=== PATIENT | male | born 1950 | race African-American/Black ===

== ENCOUNTER 2024-08-18 07:05 | Day surgery (SDC) | payer OTHER ==
[2024-08-05 15:22] LABS: Specific Gravity 1.013 (1.005-1.030); Urine Bilirubin NEGATIVE (Negative); Urine Blood Negative (Negative); Urine Clarity Clear (Clear); Urine Color Light-Yellow (Yellow); Urine Culture Reflex Order REFLEXED; Urine Glucose NEGATIVE (Negative); Urine Ketones NEGATIVE (Negative); Urine Microscopic Reflex YN NO UMIC; Urine Nitrite NEGATIVE (Negative); Urine Protein NEGATIVE (Negative); Urine Urobilinogen Normal (Normal)
[2024-08-05 15:23] LABS: Absolute Eosinophils 0.1 K/uL (0-0.5); Absolute Lymphocytes (CBC) 1.5 K/uL (0.7-4.9); Absolute Monocytes 0.5 K/uL (0.1-1.3); Basophils % 0.5 % (0-1.3); Eosinophils % 1.7 % (0-4.4); Hematocrit 41.8 % (39.6-49.0); Hemoglobin 14.3 g/dL (13.6-17.9); Lymphocytes % 24.4 % (15.3-44.8); MCH 28.9 pg (27.0-35.0); MCHC 34.3 g/dL (32.0-36.0); MCV 84.5 fL (80-100); Monocytes % 7.6 % (3.3-12.3); Neutrophils % 65.8 % (41.7-73.7); Nucleated Red Blood Cells % 0.2 % (0-0); Platelets 241 thou/uL (152-406); RBC Red Blood Cell Count 4.95 M/uL (4.33-5.43); Red Cell Distribution Width 14.8 % (12.1-15.2)
[2024-08-05 15:26] LABS: PT Prothrombin Time 11.5 SECONDS (10-13.0); Protime INR 1.01
[2024-08-05 15:38] LABS: Anion Gap 9.9 mEq/L (5.0-15.0); Potassium 3.9 mEq/L (3.5-5.1)
--- NOTE | 2024-08-05 17:43 | RAD REPORT ---
EXAM: Chest Pa And Lat (2 Views) HISTORY: 73 years Male Pre-op pending urolift/circumcision COMPARISON: None. FINDINGS: LUNGS/PLEURA: The lungs are clear. No pleural effusions or pneumothorax. No pulmonary edema. CARDIAC/MEDIASTINUM: The cardiac silhouette is within normal limits. UPPER ABDOMEN: No significant abnormality. BONES: No acute abnormality. LINES/TUBES/OTHER: N/A IMPRESSION: No evidence of acute cardiopulmonary disease.
--- NOTE | 2024-08-06 11:42 | EKG ---
Test Date: 2024-08-05 Test Time: 14:38:14 Unit Nurse: MANJULA MEASUREMENT RESULTS: Intervals: Rate: 59 IL: 168 QRSD: 76 QT: 352 QTc: 348 [place]: P: 24 IL: 168 QRS: -13 T: 65 INTERPRETIVE STATEMENTS: Sinus bradycardia Otherwise normal ECG No previous ECG available for comparison Electronically Signed On 08-06-24 11:39:42 CDT by Alf Leija
[2024-08-18] MEDS: NA CHLORIDE 0.9% 1,000 ML ONE (07:30)
[2024-08-18] MEDS ORDERED: ONDANSETRON 4 MG/2 ML VIAL ONE (09:01)
[2024-08-18] MEDS ORDERED: FENTANYL CITR 100 MCG/2 ML ONE ×2 (09:02→10:04)
[2024-08-18] MEDS ORDERED: propofoL 200 MG/20 ML VIAL IV ONE ×3 (09:02→11:05)
[2024-08-18] MEDS ORDERED: MIDAZOLAM HCL 2 MG/2 ML INJ ONE (09:03)
[2024-08-18] MEDS ORDERED: GENTAMICIN 80 MG/100 ML BAG 160 MG/200 ML BAG IV ONE (09:04)
[2024-08-18] MEDS: CEFAZOLIN SODIUM 2 GM/VIAL ONE (09:21)
[2024-08-18] MEDS ORDERED: EPHEDRINE SULF 50 MG/ML VIAL ONE (09:39)
[2024-08-18] MEDS ORDERED: GLYCOPYRROLATE 0.2 MG/ML SYR ONE (09:52)
[2024-08-18] MEDS ORDERED: ROCURONIUM 50 MG/5 ML VIAL IV ONE (10:30)
[2024-08-18] MEDS: LIDOCAINE 1% MPF 30 ML VIAL ONE (10:57)
[2024-08-18] MEDS: BUPIVACAINE 0.25% PF 30 ML VIAL ONE (10:57)
[2024-08-18] MEDS: BACITRACIN OINTMENT 14 GM TUBE TOP ONE (11:45)
[2024-08-18] MEDS ORDERED: CODEINE 30MG/APAP 300MG TAB PO PRN (12:21)
--- NOTE | 2024-08-18 12:49 | P.OP ---
Date of Service: 08/18/24 Preoperative diagnoses: Phimosis BPH with LUTS Postoperative diagnoses: Phimosis BPH with LUTS Bulbar urethral stricture disease Principal procedures: Cystoscopy Sequential urethral dilation over a wire Prostatic urethral lift/UroLift with 8 implants used, 6 successfully placed -- with 1 bone strike and 1 pull-through Complex 20 Finnish urethral Petty catheter placement over a wire Sleeve circumcision Penile block Indications for procedure: 73-year-old gentleman who presented to the urology clinic with bothersome urinary symptoms refractory to maximum dose alpha-kelly therapy. Consideration was given to use of a 5 alpha reductase inhibitor but ultimately the patient elected surgical therapy via the UroLift. Because of dense phimosis, I counseled him on the need for circumcision in order to be able to access the urethra to perform the UroLift. Procedure note: The patient was consented in the preoperative holding area before being transferred to the operative suite where general anesthesia was induced. He was given Ancef 2 g and gentamicin 160 mg IV antimicrobial prophylaxis, and pneumoboots were provided for DVT prophylaxis. He was placed in the lithotomy position initially, padded and secured to the table appropriately. His genitalia was prepped with Hibiclens, and I used Betadine on Q-tip swabs to cleanse beneath the foreskin and around the glans due to the dense phimosis. I was then able to insert the tip of the 20 Finnish UroLift sheath and visual obturator via the dense phimotic opening of the foreskin and navigate into the meatus. I traversed the distal into the mid and proximal urethra where at the bulb I encountered an area of stricture narrowing that prohibited passage of the 20 Finnish scope despite manipulation to try to use the beak of the scope to dilate the stricture narrowing. Because ultimately I was unsuccessful, I then had to remove the 20 Finnish UroLift scope and switch for a 19.5 Finnish rigid cystoscope, which I used to traverse the urethra similarly to the point of obstruction and passed a Bentson guidewire via the strictured narrowing putatively into his bladder. Over the guidewire, I then utilized sequential dilators to dilate the stricture disease from 10 Finnish to 22 Finnish. After this, I was able to navigate the 19.5 Finnish cystoscope into his bladder and d ecompress it of fluid and urine. I then remove the cystoscope and again replaced the 20 Finnish UroLift sheath and visual obturator via his urethra into his bladder going beyond the point of some tightness in the bulbar urethra that was persistent despite prior dilation. However, I was able to navigate through the prostatic urethra and into the bladder and observed significant lateral lobar hypertrophy contributing to obstruction. As a result, I switched the visual obturator for the UroLift delivery device and the first implant. I targeted this implant at around the 3 o'clock position on the patient's left angled 30 to 45 degrees upward in order to tack an adenomatous piece of tissue superior laterally on the patient's left side. I did this by angling the delivery device against the tissue 15 degrees before pulling the trigger once delivering the needle through the substance of the prostate. I then compressed the tissue and additional 15 degrees maximally to ensure the tip of the needle was situated outside of the capsule before pulling the trigger a second time deploying the capsular tab. I then pulled the trigger third time retracting the needle and tensioning the suture before advancing the scope back toward the midline and 2 to 3 mm toward the bladder neck opening, until the white line of the monofilament was centered in the delivery bay, at which point I pulled the t community support specialist a fourth time tailoring the suture and deploying a urethral power plant installer. This did beautifully lateralize and lift the tissue on the patient's left side at the bladder neck. I then advanced the scope back into the patient's bladder and switched the delivery device for a new implant which I targeted and a position slightly more anteriorly on the patient's right side at around the 10 to 11 o'clock position about 1.5 cm distal to the bladder neck opening. Similarly, I angled the scope 15 degrees against the tissue and pulled the trigger, but this did result in what was apparently a bone strike, which became more apparent after the third pull of the trigger did reveal no suture within the channel. As a result, I removed the delivery device and pulled the trigger the fourth time to deploy the urethral end piece outside of the cystoscopic lumen, and then I went back in with a new UroLift implant. As a result, at this point, 2 implants had been used, but only 1 successfully placed. I then placed a third implant, the second successfully placed, on the patient's right side at the bladder neck as described. This did nicely open up the bladder neck; so I placed a third implant, the fourth implant used, at the patient's verumontanum on the left at around the 3 o'clock position, before placing a fourth implant, the fifth used, at the level of the verumontanum on the patient's right side. I then surveyed the channel created, and there was still significant kissing and interdigitating adenoma within the mid zone of the prostate bilaterally. The majority of that seem to be coming from the patient's left side; so I started by using a sixth implant, and successfully placing the fifth implant in the patient's mid zone of the prostate on the left side. I then surveyed the channel created using a visual obturator revealing an asymmetric channel with intraurethrally intruding tissue coming from the right side, and so I utilized a seventh implant targeting the mid zone of the prostate on the right side. And per routine, I angled the delivery device 15 degrees against the tissue before pulling the trigger once delivering the needle through the substance of the prostate, but by the sound of the delivery device, there was an apparently a pull-through which was identifiable after the third pull of the trigger. As a result, before pulling the trigger a fourth time, I removed the implant delivery device and indeed the implant pulled through the tissue. As a result, I had to utilize an 8th implant to successfully place a sixth implant in the patient's mid zone of the prostate on the right side. Survey of the channel created revealed some residual kissing adenoma distal to the apical most implants placed with some slight closure of the bladder neck still present; however, because 8 implants had been used at this point, I did not attempt further implants since he likely would have required at least 4 more implants based on the anatomic appearance. As a result, I placed the cystoscope back into his bladder after removing the UroLift visual obturator and sheath, and I passed a CleanAppson guidewire back into the bladder under direct vision before leaving it in place and removing the scope ultimately placing a 20 [place] tip catheter over the wire into his bladder with ease. 30 cc of sterile water was placed in the balloon and the catheter was plugged. The patient was then taken out of the lithotomy position, transferred to a stretcher and then transferred to an open OR room where he was placed supine on an operative table. The prepubic region was shaved, prepped with Betadine, and draped in standard fashion. I utilized a one-to-one mixture of quarter percent Marcaine and 1% lidocaine as a penile block injected into the infrapubic region in the midline and bilaterally in the region of the neurovascular bundles for a total of 30 cc administered. I then utilized a straight snap to perform a dorsal slit and then was able to expose the glans penis. I then marked an area within the preputial margin about 1 cm in length, and I circumferentially incised the foreskin. I then reduced the foreskin over the glans and identified a line at the base of the donaldson of the glans which was similarly marked and then incised using a 15 blade. The intervening tissue was then removed using electrocautery down to the dartos layers. Careful hemostasis was then obtained using Adson forceps and electrocautery. Once completely hemostatic, the subcutaneous tissues were irrigated using saline and then reassess for any bleeding vessels and fulgurated where necessary. I then performed the reconstruction using quadrant sutures of 3-0 Vicryl placed with intervening tissues closed using a running horizontal mattress of the 3-0 chromic suture. In the end, the cosmetic result was excellent. Bacitracin was applied to the incision line and the glans penis, and a Sen and Coban was applied for gentle pressure application. The catheter was allowed to drain and there was a mild to moderate degree of hematuria; so I irrigated the catheter to ensure no significant bleeding or clots. The returning irrigant fluid was light pink; so the catheter was connected to a leg bag. The patient was awakened from general anesthesia, transferred to a stretcher, and then transferred to the recovery room in good condition. Complications: None Discharge disposition: Since he has a urethral Petty catheter due to the bulbar urethral stricture disease, I would like him to keep it until next Saturday or potentially Saturday where it can be removed. He only started the antibiotics yesterday; so he should have enough to get him through at least Saturday or Saturday. Voiding trial next Saturday. Subsequently, we will reassess his LUTS and follow-up in approximately 1 month. If he has significant residual LUTS, he would likely benefit from several additional implants apically and at the bladder neck.
[2024-08-18 12:56] VITALS: BP 127/77; TEMP 97; O2SAT 98
[2024-08-18] MEDS ORDERED: OXYBUTYNIN ER 5 MG TAB PO ONE (13:05)
[2024-08-18] MEDS ORDERED: PHENAZOPYRIDINE 100MG TAB PO ONE (13:05)
[2024-08-18] MEDS ORDERED: CODEINE 30MG/APAP 300MG TAB ONE (13:05)
[2024-08-18] MEDS: OXYBUTYNIN ER 5 MG TAB PO ONE (13:10)
[2024-08-18] MEDS: PHENAZOPYRIDINE 100MG TAB PO ONE (13:10)
== END 2024-08-18 13:45 | disposition home or self-care (01) ==
LOC: OR 07:05
PROVIDERS: ATTEND Urology
PROC: 0T7D8DZ Dilation of Urethra with Intraluminal Device, Via Natural or Artificial Opening Endoscopic (ICD-10-PCS; principal; 2024-08-18 08:30)
PROC: 0VTTXZZ Resection of Prepuce, External Approach (ICD-10-PCS; 2024-08-18 08:30)
DX: N40.1 Benign prostatic hyperplasia with lower urinary tract symptoms (principal); N47.1 Phimosis; N35.912 Unspecified bulbous urethral stricture, male
CPT/HCPCS: 93005; 87088; 85025; 87086; 80048; 36415; 85610; 82947; 88304; 87077; 87186; 81003; 71046; 52441; 52442 ×5; 54150; J2704 ×2; J2003; J2250; J3010 ×2; J2405; J7030; J1580